=== PATIENT | female | born 1995 ===

== ENCOUNTER 2021-03-24 05:37 | Outpatient (CLI) | payer SELFPAY ==
[~2021-03-24] VITALS: Ht 152.4 cm; Wt 66.4 kg
[2021-03-24] MEDS ORDERED: PREN-8 PO (11:25)
== END 2021-03-24 11:29 | disposition home or self-care (01) ==
LOC: PREOP 05:37
PROVIDERS: ATTEND Obstetrics & Gynecology
DX: Z01.818 Encounter for other preprocedural examination (principal)

== ENCOUNTER 2021-03-31 06:00 | Inpatient (IN) | payer OTHER ==
[2021-03-31] VITALS (10 sets, daily range): BP systolic 90–113; BP diastolic 53–70
[~2021-03-31] VITALS: Ht 147.3 cm; Wt 68.6 kg
[~2021-03-31 06:00] MED LIST: PREN-8 PO
[2021-03-31] MEDS ORDERED: LACTATED RINGERS 1,000 ML IV SCH (06:15)
[2021-03-31] MEDS ORDERED: METOCLOPRAMIDE INJ 10 MG/2 ML (REGLAN) IV ONE (06:15)
[2021-03-31] MEDS ORDERED: ceFAZolin 2 GM IV Premixed 50 ML IV ONE (06:15)
[2021-03-31] MEDS ORDERED: FAMOTIDINE 20MG/2ML IV (PEPCID) IV ONE (06:15)
[2021-03-31] MEDS ORDERED: CITRIC ACID/SOB CIT (BICITRA) 30 ML UDC PO ONE (06:15)
[2021-03-31] MEDS: LACTATED RINGERS 1,000 ML IV SCH ×2 (06:27→14:15)
[2021-03-31 06:34] LABS: BASOPHILS # (AUTO) 0.1 10^3/uL (0.0-0.1); BASOPHILS % (AUTO) 1 % (0-10); MEAN CORPUSCULAR HEMOGLOBIN 21 pg (25-34)
[2021-03-31 06:36] LABS: EOSINOPHILS # (AUTO) 0.1 10^3/uL (0.0-0.3); EOSINOPHILS % (AUTO) 1 % (0-10); HEMATOCRIT 31 % (35-52); HEMOGLOBIN 9.3 g/dL (11.5-16.0); LYMPHOCYTES # (AUTO) 2.9 10^3/uL (1.0-4.0); LYMPHOCYTES % (AUTO) 27 % (12-44); MEAN CORPUSCULAR HGB CONC 31 g/dL (32-36); MEAN CORPUSCULAR VOLUME 68 fL (80-99); MEAN PLATELET VOLUME 10.9 fL (9.0-12.2); MONOCYTES # (AUTO) 1.1 10^3/uL (0.0-1.0); MONOCYTES % (AUTO) 10 % (0-12); NEUTROPHILS # (AUTO) 6.3 10^3/uL (1.8-7.8); NEUTROPHILS % (AUTO) 59 % (42-75); PLATELET COUNT 288 10^3/uL (130-400); WHITE BLOOD COUNT 10.6 10^3/uL (4.3-11.0)
[2021-03-31 06:43] LABS: SMEAR SCAN COMMENT YES
[2021-03-31] MEDS ORDERED: fentaNYL INJ 100 MCG/2 ML AMP ONE (07:04)
[2021-03-31] MEDS ORDERED: KETOROLAC 30 MG/ML VIAL ONE (07:04)
[2021-03-31] MEDS ORDERED: ONDANSETRON 4 MG/2 ML (SDV) Z0FRAN ONE (07:04)
[2021-03-31] MEDS ORDERED: OXYTOCIN PRE-MIX DRIP 1,000 ML IV ONE (07:04)
--- NOTE | 2021-03-31 07:20 | History & Physical-OB ---
OB - Chief Complaint & HPI Date/Time Date of Admission: Date of Admission: Mar 31, 2021 at 06:00 Date seen by a Provider: Mar 31, 2021 Time Seen by a Provider: 07:15 Chief Complaint/History OB-Reason for Admission/Chief: Section Hx : 2 Hx Para: 1 Expected Date of Delivery: Apr 07, 2021 Gestational Age in Weeks: 39 Gestational Age in Days: 0 Indication for : desires repeat Admission Nurse Assessment Rev: Yes History of Labs O pos Antibody neg RNI Allergies and Home Medications Allergies Coded Allergies: No Known Drug Allergies (Unverified , 03/24/21) Patient Home Medication List Home Medication List Reviewed: Yes Vit W-Ca,Fe,FA(<1 mg) ( Formula) 1 Each Tablet, 1 EACH PO DAILY, (Reported) Entered as Reported by: MEENAKSHI CHAVEZ on 03/24/21 1125 OB - History Hx of Present Care: Yes Ultrasounds: Normal mid trimester US (late care) Obstetrical Complications: None Medical Complications: None Patient Past Medical History n/a Immunizations Influenza Vaccine Up-to-Date: Yes; Up-to-Date First/Initial COVID19 Vaccine: yes Second COVID19 Vaccination: yes Hepatitis A: No Hepatitis B: No OB - Admission Exam Physical Exam Vitals: Vital Signs 03/31/21 06:33 Temp 36.6 Pulse 91 Resp 18 Pulse Ox 98 O2 Delivery Room Air HEENT: NCAT Heart: Rhythm Normal Lungs: Clear Abdomen: Gravid Extremities: Normal Reflexes: Normal Heart Rate: 130's Accelerations: Accelerations Present Decelerations: No Decelerations Short Term Variability: Present Skilled Nursing Variability: Average (6-25) Contractions on Admission: >10 Minutes Apart Intensity: Mild Labs Laboratory Tests Test 03/31/21 06:20 Range/Units White Blood Count 10.6 4.3-11.0 10^3/uL Red Blood Count 4.46 3.80-5.11 10^6/uL Hemoglobin 9.3 L 11.5-16.0 g/dL Hematocrit 31 L 35-52 % Mean Corpuscular Volume 68 L 80-99 fL Mean Corpuscular Hemoglobin 21 L 25-34 pg Mean Corpuscular Hemoglobin Concent 31 L 32-36 g/dL Red Cell Distribution Width 18.0 H 10.0-14.5 % Platelet Count 288 130-400 10^3/uL Mean Platelet Volume 10.9 9.0-12.2 fL Immature Granulocyte % (Auto) 2 % Neutrophils (%) (Auto) 59 42-75 % Lymphocytes (%) (Auto) 27 12-44 % Monocytes (%) (Auto) 10 0-12 % Eosinophils (%) (Auto) 1 0-10 % Basophils (%) (Auto) 1 0-10 % Neutrophils # (Auto) 6.3 1.8-7.8 10^3/uL Lymphocytes # (Auto) 2.9 1.0-4.0 10^3/uL Monocytes # (Auto) 1.1 H 0.0-1.0 10^3/uL Eosinophils # (Auto) 0.1 0.0-0.3 10^3/uL Basophils # (Auto) 0.1 0.0-0.1 10^3/uL Immature Granulocyte # (Auto) 0.2 H 0.0-0.1 10^3/uL Percent Immature Platelet Fraction 7.6 0.0-7.6 % Smear Scan YES OB - Assessment/Plan/Diagnosis Assessment Assessment: section Admission Dx 25 yo @ 39 week Previous RNI Admission Status: Inpatient Order (span 2 midnights) Reason for Inpatient Admission: Repeat Plan Plan: Section JEMAL SEE DO Mar 31, 2021 07:20
--- NOTE | 2021-03-31 07:23 | Discharge Inst-Women's Service ---
Discharge Inst-Women's Serv Depart Medication/Instructions New, Converted or Re-Newed RX: Transmitted to Pharmacy Final Diagnosis POD 2 RLTCS Problems Reviewed?: Yes Consults/Follow Up Additional Follow Up: Yes Orders/Referrals Dr. Lake in 7-10 days, Dr. Cordero in 6 weeks Activity Activity: Activity as Tolerated Driving Instructions: No Driving for 1 Week NO SMOKING: NO SMOKING Nothing Inside Vagina: No Douching, No [place], No Tampons Diet Discharge Diet: No Restrictions Symptoms to Report to : Bleeding Excessive, Pain Increased, Fever Over 101 Degrees F, Vaginal Bleeding Increase, Questions/Concerns For Any Problems or Questions: Contact Your Physician Skin/Wound Care Infection Signs and Symptoms: Increased Redness, Foul Odor of Wound, Increased Drainage, Skin Itchy or Has a Rash, Increased Swelling, Temperature Above 101 F Operative Area Clean and Dry: Keep Incision Clean/Dry Stitches/[place]/Dermabond: Dermabond, Care of Stitches Bathing Instructions: JEMAL Peters DO Mar 31, 2021 07:23
[2021-03-31] MEDS ORDERED: TETANUS,DIPTH,PERTUSS P/F (BOOSTRIX) 0.5 ML VIAL IM SCH (07:30)
[2021-03-31] MEDS ORDERED: ONDANSETRON 4 MG/2 ML (SDV) Z0FRAN IVP PRN (07:30)
[2021-03-31] MEDS ORDERED: MEASLES,MUMPS,RUBELLA 1 EA INJ SC SCH (07:30)
[2021-03-31] MEDS ORDERED: OXYTOCIN PRE-MIX DRIP 500 ML IV SCH (07:30)
[2021-03-31] MEDS ORDERED: NALOXONE 0.4 MG/ML 1 ML (NARCAN) VIAL IV PRN (07:30)
[2021-03-31] MEDS ORDERED: BUPIVACAINE 0.25% 30 ML (SENSORCAINE) VIAL ONE (08:11)
[2021-03-31] MEDS: DOCUSATE SODIUM 100 MG (COLACE) CAP PO SCH ×2 (10:14→20:19)
--- NOTE | 2021-03-31 12:33 | OPERATIVE REPORT ---
DATE OF SERVICE: PREOPERATIVE DIAGNOSES: 1. A 25-year-old G2, P1 at 39 weeks gestation. 2. Previous section. POSTOPERATIVE DIAGNOSES: 1. A 25-year-old G2, P1 at 39 weeks gestation. 2. Previous section. PROCEDURE PERFORMED: Repeat low transverse section. SURGEON: Kaz See DO. BRAKE LINER: Dr. Jose Cordero, who was necessary for manipulation and retraction throughout the procedure. ANESTHESIA: Spinal. ESTIMATED BLOOD LOSS: 350 mL. URINE OUTPUT: 150 mL clear at the end of the procedure. FLUIDS: 1700 mL lactated Ringer's solution. FINDINGS: A live male infant weighing 7 pounds 14 ounces, Apgars of 9 and 9. Grossly normal appearing uterus, bilateral fallopian tubes, and ovaries. SPECIMEN SENT: Placenta. INDICATIONS FOR PROCEDURE: This 25-year-old female is a patient, who had sought care at [facility]. She was consulted to my care for repeat . On her preoperative visit, risks were reviewed. All of her questions were answered and a consent was obtained. OPERATIVE REPORT IN DETAIL: Once in the operating room, spinal analgesia was found to be adequate, she was placed in supine position with leftward tilt, prepped and draped in a normal sterile fashion. A timeout was performed and anesthesia was tested. I then made a Pfannenstiel skin incision with a knife and carried down to the underlying fascia using Bovie cautery. The fascial incision extended laterally using Bovie cautery. Superior aspect of the fascial incision was then grasped with Elias clamps, tented up, and dissected off the underlying rectus muscles. The inferior aspect of the fascial incision was then grasped with Elias clamps, tented up and dissected off the underlying rectus muscles. Rectus muscles were dissected down the midline, which exposed the peritoneum, which I entered bluntly and extended using blunt traction. Nithin ring retractor was placed in the peritoneal incision, which offers excellent lateral sidewall retraction. I identified the lower uterine segment, which was found to be thinned out and I made a low transverse incision to the vesicouterine peritoneum and bluntly dissected this off the lower uterine segment, creating a bladder flap. I then proceeded with my myotomy until membranes were visualized, at which point, I extended the uterine incision laterally and superiorly using Campbell scissors. Amniotomy was performed using Allis clamp. Clear fluid was noted. The was found in vertex presentation. With gentle fundal pressure, the infant's head was elevated up the incision, where the nares and oropharynx were bulb suctioned. Nuchal cord was reduced x1. Anterior and posterior shoulders were delivered. The infant was then brought to the operative field, the cord was doubly clamped and cut and infant was handed off to awaiting nurses in attendance. Cord blood was collected, 3-vessel cord with intact placenta was delivered spontaneously thereafter. IV Pitocin was initiated to facilitate uterine contraction. Uterine fundus was confirmed by manual massage. Uterus was then exteriorized and cleared of all endometrial clots and debris. I then proceeded with closing the uterine incision using 0 Vicryl suture in a running locked fashion. Second imbricating 0 Monocryl was placed. Excellent hemostasis was noted after doing this. I then placed the uterus back in the pelvis and copiously irrigated the pelvis using normal saline. Once again, no active bleeding was noted from any of my dissection planes. I placed Interceed antiadhesive over my low transverse incision. I then removed the Nithin ring retractor and proceeded with closing the peritoneum using 3-0 Vicryl suture in a running fashion. The rectus muscle was reapproximated using 3-0 Vicryl suture in an interrupted fashion. The fascia was reapproximated using 0 Vicryl suture in a running fashion. Subcutaneous tissue was reapproximated using 3-0 plain and the skin reapproximated using 4-0 Monocryl running subcuticular. Dermabond was applied to the incision and sterile dressing with adhesive white tape. The patient tolerated the procedure well and sent to recovery in stable condition. Lap and sponge counts were correct at the end of the procedure. Instrument counts were correct as well. Two grams of Ancef were given preoperatively for infection prophylaxis. Job ID: [id number] DocumentID: [id number] Dictated Date: 03/31/2021 08:01:32 Air Plant Engineer Date: 03/31/2021 12:32:27 Dictated By: KAZ SEE DO
[2021-03-31] MEDS: KETOROLAC 30 MG/ML VIAL IV SCH ×2 (14:00→20:19)
[2021-03-31] MEDS ORDERED: CATHETER FLUSH 10 ML SYR IV SCH (14:00)
[2021-03-31] MEDS: HYDROcodone/APAP 5 MG/325 MG (LORTAB) TAB PO PRN (20:04)
[2021-04-01 00:30] VITALS: BP 101/55
[2021-04-01] MEDS: KETOROLAC 30 MG/ML VIAL IV SCH ×2 (02:30→08:15)
[2021-04-01 04:00] VITALS: BP 97/53
[2021-04-01 06:30] LABS: BASOPHILS % (AUTO) 0 % (0-10); HEMOGLOBIN 7.8 g/dL (11.5-16.0); MEAN CORPUSCULAR VOLUME 68 fL (80-99)
[2021-04-01 06:32] LABS: EOSINOPHILS % (AUTO) 0 % (0-10); HEMATOCRIT 26 % (35-52); LYMPHOCYTES # (AUTO) 2.3 10^3/uL (1.0-4.0); LYMPHOCYTES % (AUTO) 22 % (12-44); MEAN CORPUSCULAR HEMOGLOBIN 21 pg (25-34); MEAN CORPUSCULAR HGB CONC 30 g/dL (32-36); MEAN PLATELET VOLUME 11.2 fL (9.0-12.2); MONOCYTES # (AUTO) 0.7 10^3/uL (0.0-1.0); MONOCYTES % (AUTO) 7 % (0-12); NEUTROPHILS # (AUTO) 7.2 10^3/uL (1.8-7.8); NEUTROPHILS % (AUTO) 69 % (42-75); PLATELET COUNT 236 10^3/uL (130-400); WHITE BLOOD COUNT 10.3 10^3/uL (4.3-11.0)
[2021-04-01 08:00] VITALS: BP 100/54
[2021-04-01] MEDS: HYDROcodone/APAP 5 MG/325 MG (LORTAB) TAB PO PRN (08:14)
[2021-04-01] MEDS: DOCUSATE SODIUM 100 MG (COLACE) CAP PO SCH ×2 (08:14→21:12)
--- NOTE | 2021-04-01 08:23 | Postpartum Progress Note ---
Note Note Day # 1 Subjective: Patient is without complaints. Ambulating, voiding. Tolerating a regular diet without nausea or vomiting. Normal lochia. Pain is well controlled with oral pain medications. Objective: Physical Exam: General - Alert and oriented, no apparent distress Abdomen - Soft, appropriately tender to palpation, non-distended, fundus firm at umbilicus Extremities - no edema, negative Mai's bilaterally Incision- c/d/i Assessment: POD 1 RLTCS Acute blood loss anemia Plan: Routine care. Encourage breast feeding. Encourage ambulation. Ferrous sulfate supplementation. Plan for discharge tomorrow Vitals - Labs Vital Signs - I&O Vital Signs Date Time Temp Pulse Resp B/P (MAP) Pulse Ox O2 Delivery O2 Flow Rate FiO2 04/01/21 04:00 36.7 73 18 97/53 (68) 79 Room Air 04/01/21 00:30 36.6 66 18 101/55 (70) 98 Room Air 03/31/21 20:16 37.3 85 18 98/54 (69) 96 Room Air 03/31/21 15:30 37.2 68 18 96/54 (68) 96 Room Air 03/31/21 12:02 36.3 76 16 98/53 (68) 96 Room Air 03/31/21 10:05 35.9 66 14 101/62 (75) 98 Room Air 03/31/21 09:35 36.4 18 98/70 (79) 97 Room Air 03/31/21 09:24 Room Air 03/31/21 09:20 Room Air 03/31/21 09:17 36.3 18 95/58 (70) 98 Room Air 03/31/21 09:02 36.4 18 97/63 (74) 97 Room Air 03/31/21 09:00 Room Air 03/31/21 08:42 Room Air 03/31/21 08:37 36.3 18 90/60 (70) 97 Room Air 03/31/21 08:26 36.2 16 98/59 (72) 99 Room Air 03/31/21 08:26 Room Air I & O 04/01/21 06:59 Intake Total 2390 ml Output Total 2525 ml Balance -135 ml Labs Laboratory Tests 04/01/21 05:10: White Blood Count 10.3, Red Blood Count 3.77L, Hemoglobin 7.8L, Hematocrit 26L, Mean Corpuscular Volume 68L, Mean Corpuscular Hemoglobin 21L, Mean Corpuscular Hemoglobin Concent 30L, Red Cell Distribution Width 17.6H, Platelet Count 236, Mean Platelet Volume 11.2, Immature Granulocyte % (Auto) 1, Neutrophils (%) (Auto) 69, Lymphocytes (%) (Auto) 22, Monocytes (%) (Auto) 7, Eosinophils (%) (Auto) 0, Basophils (%) (Auto) 0, Neutrophils # (Auto) 7.2, Lymphocytes # (Auto) 2.3, Monocytes # (Auto) 0.7, Eosinophils # (Auto) 0.0, Basophils # (Auto) 0.0, Immature Granulocyte # (Auto) 0.1, Percent Immature Platelet Fraction 6.4 Microbiology 03/31/21 MRSA Screen - Final, Complete MRSA not isolated JEMAL SEE DO Apr 01, 2021 08:23
[2021-04-01] MEDS ORDERED: DOCU100C37 PO (08:31)
[2021-04-01] MEDS ORDERED: ACHD5005 PO (08:31)
[2021-04-01] MEDS ORDERED: IBUP-844 PO (08:31)
--- NOTE | 2021-04-01 09:20 | Anesthesia-Regional Post-Op ---
Regional Patient Condition Mental Status: Alert, Oriented x3 Circulation: Same as Pre-Op Headache: Absent Sensation: Full Recovery Motor Block: Absent Post Op Complications Complications None Follow Up Care/Instructions Patient Instructions None needed. Anesthesia/Patient Condition Patient is doing well, no complaints, stable vital signs, no apparent adverse anesthesia problems. No complications reported per nursing. COLE JUNG CRNA Apr 01, 2021 09:20
[2021-04-01 12:45] VITALS: BP 100/60
[2021-04-01] MEDS: IBUPROFEN 600 MG (MOTRIN) TAB PO SCH ×2 (15:34→21:12)
[2021-04-01 17:16] VITALS: BP 107/51
[2021-04-01 21:10] VITALS: BP 116/58
[2021-04-02] MEDS: IBUPROFEN 600 MG (MOTRIN) TAB PO SCH ×2 (03:24→09:02)
[2021-04-02 03:25] VITALS: BP 99/53
--- NOTE | 2021-04-02 08:24 | Postpartum Progress Note ---
Note Note Day # 2 Subjective: Patient is without complaints. Ambulating, voiding. Tolerating a regular diet without nausea or vomiting. Normal lochia. Pain is well controlled with oral pain medications. Objective: Physical Exam: General - Alert and oriented, no apparent distress Abdomen - Soft, appropriately tender to palpation, non-distended, fundus firm at umbilicus Extremities - no edema, negative Mai's bilaterally Incision- c/d/i Assessment: POD 2 RLTCS Acute blood loss anemia Plan: Routine care. Encourage breast feeding. Encourage ambulation. Ferrous sulfate supplementation. Plan for discharge today Vitals - Labs Vital Signs - I&O Vital Signs Date Time Temp Pulse Resp B/P (MAP) Pulse Ox O2 Delivery O2 Flow Rate FiO2 04/02/21 03:25 36.6 79 18 99/53 (68) 98 Room Air 04/01/21 21:10 37.6 87 18 116/58 (77) 97 Room Air 04/01/21 17:16 36.7 79 18 107/51 (69) 96 Room Air 04/01/21 12:45 36.6 96 18 100/60 (73) 98 Room Air I & O 04/02/21 07:00 Intake Total 1640 ml Output Total 1250 ml Balance 390 ml Labs Microbiology 03/31/21 MRSA Screen - Final, Complete MRSA not isolated JEMAL SEE DO Apr 02, 2021 08:24
[2021-04-02] MEDS: DOCUSATE SODIUM 100 MG (COLACE) CAP PO SCH (09:02)
[2021-04-02 09:07] VITALS: BP 94/51
== END 2021-04-02 12:20 | disposition home or self-care (01) | DRG 787 ==
LOC: LDRP 06:00
PROVIDERS: ADMIT Obstetrics & Gynecology; ATTEND Obstetrics & Gynecology
PROC: 10D00Z1 Extraction of Products of Conception, Low, Open Approach (ICD-10-PCS; principal; 2021-03-31 07:14)
DX: O34.211 Maternal care for low transverse scar from previous cesarean delivery (principal); D62 Acute posthemorrhagic anemia; O69.81X0 Labor and delivery complicated by cord around neck, without compression, not applicable or unspecified; O90.81 Anemia of the puerperium; Z37.0 Single live birth; Z3A.39 39 weeks gestation of pregnancy
CPT/HCPCS: 36415; 85025; 86850; 86900; 86901; 87081; 94664